=== PATIENT | female | born 1995 | race Caucasian/White ===

== ENCOUNTER 2016-10-17 13:13 | Outpatient (CLI) | payer BC ==
[2016-10-17] MEDS ORDERED: BARIUM SULFATE 176 GM BOTTLE PO ONE (13:52)
[2016-10-17] MEDS ORDERED: BARIUM SULFATE 454 GM TUBE PO ONE (13:52)
== END 2016-10-17 13:14 | disposition home or self-care (01) ==
DX: R13.10 Dysphagia, unspecified (principal)
CPT/HCPCS: 74230; 92611; A9270

== ENCOUNTER 2016-10-24 09:40 | Outpatient (CLI) | payer BC | END 2016-10-24 09:41 | disposition home or self-care (01) | DX: N39.0 Urinary tract infection, site not specified (principal) ==

== ENCOUNTER 2016-12-28 08:29 | Outpatient (CLI) | payer BC ==
[2016-12-30 13:06] LABS: TREPONEMA AB IGG NEGATIVE (())
[2016-12-31 00:03] LABS: HSV 1 IGG INDEX <0.90 INDEX (()); HSV 1/2 IGM INDEX <0.90 INDEX (()); HSV 2 IGG INDEX <0.90 INDEX (())
== END 2016-12-28 08:30 | disposition home or self-care (01) ==
LOC: LAB.WCP 08:29
PROVIDERS: ATTEND Family Medicine
DX: Z20.2 Contact with and (suspected) exposure to infections with a predominantly sexual mode of transmission (principal)
CPT/HCPCS: 36415; 86694; 86695; 86696; 86780; 86803; 87389; 87491; 87591

== ENCOUNTER 2016-12-28 08:34 | Outpatient (CLI) | payer BC | END 2016-12-28 08:35 | disposition home or self-care (01) | LOC: LAB.R 08:34 | PROVIDERS: ATTEND Family Medicine | DX: Z20.5 Contact with and (suspected) exposure to viral hepatitis (principal) | CPT/HCPCS: 87491; 87591 ==

== ENCOUNTER 2017-03-29 08:00 | Outpatient (CLI) | payer BC | END 2017-03-29 08:01 | disposition home or self-care (01) | LOC: LAB.R 08:00 | PROVIDERS: ATTEND Family Medicine | DX: N89.8 Other specified noninflammatory disorders of vagina (principal) | CPT/HCPCS: 87480; 87510; 87660 ==

== ENCOUNTER 2018-04-12 08:00 | Outpatient (CLI) | payer BC | END 2018-04-12 08:01 | disposition home or self-care (01) | LOC: LAB.WCP 08:00 | PROVIDERS: ATTEND Nurse Practitioner | DX: N89.8 Other specified noninflammatory disorders of vagina (principal) | CPT/HCPCS: 87480; 87510; 87660 ==

== ENCOUNTER 2018-10-05 09:12 | Outpatient (CLI) | payer OTHER, BC ==
[2018-10-05 09:50] LABS: ALBUMIN 4.2 g/dL (3.2-5.5); ALBUMIN/GLOBULIN RATIO 1.4 (1.0-2.2); ALKALINE PHOSPHATASE 43 IU/L (42-121); ALT ALANINE AMINOTRANSFERASE 12 IU/L (10-60); AST ASPARTATE AMINOTRANSFERASE 16 IU/L (10-42); BILIRUBIN,TOTAL 0.7 mg/dL (0.2-1.0); BUN - BLOOD UREA NITROGEN 14 mg/dL (6-20); CALCIUM 9.2 mg/dL (8.5-10.3); CARBON DIOXIDE - CO2 24 mmol/L (21-32); CHLORIDE 107 mmol/L (101-111); CHOL/HDL RATIO 2.1 (<4.4); CHOLESTEROL 152 mg/dL; CREATININE 0.7 mg/dL (0.4-1.0); GFR - MDRD 102 (>89); GLUCOSE 87 mg/dL (70-100); HDL CHOLESTEROL 74 mg/dL; LDL CHOLESTEROL,CALCULATED 64 mg/dL; LDL/HDL RATIO 0.9 (<4.4); SODIUM 138 mmol/L (135-145); TOTAL PROTEIN 7.3 g/dL (6.7-8.2); VLDL CHOLESTEROL 14 mg/dL
[2018-10-07 15:47] LABS: HEPATITIS C ANTIBODY NON-REACTIVE (NON-REACTIVE)
== END 2018-10-05 09:13 | disposition home or self-care (01) ==
LOC: LAB 09:12
PROVIDERS: ATTEND Family Medicine
DX: Z00.00 Encounter for general adult medical examination without abnormal findings (principal); Z11.3 Encounter for screening for infections with a predominantly sexual mode of transmission
CPT/HCPCS: 36415; 80053; 80061; 83721; 86803

== ENCOUNTER 2019-02-10 08:00 | Outpatient (CLI) | payer OTHER ==
[2019-02-10 18:00] LABS: MEAN CORPUSCULAR HEMOGLOBIN 29.7 pg (27.0-31.0); MEAN CORPUSCULAR HGB CONC 32.7 g/dL (32.0-36.0); MEAN CORPUSCULAR VOLUME 90.8 fL (81.0-99.0); MEAN PLATELET VOLUME 10.1 fL (7.9-10.8); RED BLOOD COUNT 4.37 10^6/uL (4.20-5.40); RED CELL DISTRIBUTION WIDTH 12.4 % (12.0-15.0); WHITE BLOOD COUNT 5.1 x10^3/uL (4.8-10.8)
== END 2019-02-10 08:01 | disposition home or self-care (01) ==
LOC: LAB 08:00
PROVIDERS: ATTEND Obstetrics & Gynecology
DX: N93.9 Abnormal uterine and vaginal bleeding, unspecified (principal)
CPT/HCPCS: 36415; 85027

== ENCOUNTER 2019-02-10 16:52 | Outpatient (CLI) | payer OTHER ==
--- NOTE | 2019-02-12 01:06 | Ultrasound Report ---
Reason: ABNORMAL VAGINAL BLEEDING Procedure Date: 02/10/2019 Accession Number: [id number] / [id number] Procedure: US - Pelvic w/Transvaginal CPT Code: FULL RESULT: EXAM: PELVIC ULTRASOUND EXAM DATE: 02/10/2019 05:13 PM. CLINICAL HISTORY: ABNORMAL VAGINAL BLEEDING. COMPARISON: None. TECHNIQUE: Realtime transabdominal pelvic scan performed to identify the uterus and adnexa and as an overview of other pelvic structures, followed by transvaginal scan to provide greater detail of the uterus and adnexa, with static image documentation. FINDINGS: Uterus: 8.9 x 4.1 x 5.1 cm, volume 98.1 cc. Anteverted position. Normal overall size and echotexture. Masses: None. Endometrium: 3 mm. No focal endometrial abnormalities. Cervix: Unremarkable. Right Ovary: 1.8 x 2.0 x 1.6 cm, volume 3.1 cc. Normal echotexture and blood flow. Left Ovary: 1.8 x 1.2 x 1.7 cm, volume 2 cc. Normal echotexture and blood flow. Free Fluid: None. Other: None. IMPRESSION: No acute sonographic abnormalities. RADIA
== END 2019-02-10 16:53 | disposition home or self-care (01) ==
LOC: DI 16:52
PROVIDERS: ATTEND Obstetrics & Gynecology
DX: N93.9 Abnormal uterine and vaginal bleeding, unspecified (principal)
CPT/HCPCS: 76830; 76856

== ENCOUNTER 2019-03-12 12:19 | Day surgery (SDC) | payer OTHER ==
--- NOTE | 2019-03-11 01:09 | HISTORY & PHYSICAL EXAMINATION ---
HPI - Admitted From Admitted from: Other - History Obtained From Records Reviewed: Old records reviewed, Other History obtained from: Patient Exam limitations: No limitations - History of Present Illness HPI Comment/Other: Ms. Dent is a 24-year-old G1, P0 here for Nexplanon removal and seeks management of DUB, with conversion to preoperative assessment for hysteroscopy D&C, Mirena IUD placement, and Nexplanon removal. She reports that she has had abnormal menstrual bleeding since menarche. She has tried multiple means of managing her bleeding. She has been on multiple formulations of oral contraceptives. She has been on Depo-Lupron for 6 months. This has been an ongoing problem since seventh or eighth grade.There was one brief period where she did not have a cycles for several months and then bled for 2 weeks straight. She became after that. The was not continued. She was had a Nexplanon placed and that improved her bleeding. Since she has had her second Nexplanon placed she continues to bleed on a near daily basis. She would like the Nexplanon removed today. She plans on continuing with Dodie COCxs. She attempted to have a Mirena IUD placed at one point but was too deterred by the description.She is not interested in childbearing. She is interested in adoption. She has considered hysterectomy. She has not had a hysteroscopy or D&C. She had a severe allergic reaction to bupivacaine. She would like her Nexplanon removed. She was told she might not react to Marcaine. However we reviewed that bupivacaine is part of Marcaine. She is interested in possible hysteroscopy with a D&C at the same time she could have a Mirena IUD placed. While she is under anesthesia we could also remove her Nexplanon. ASCUS pap last year. HPV negative. Current Allergies: AMOXICILLIN (Critical) * CEPHELEXIN (Critical) BENZOCAINE (BENZOCAINE) (Critical) * XANO STARCH (Critical) Current Meds: DODIE 3-0.02 MG ORAL TABLET (DROSPIRENONE-ETHINYL ESTRADIOL) one by mouth daily; Route: ORAL SPIRONOLACTONE 50 MG ORAL TABLET (SPIRONOLACTONE) one by mouth daily; Route: ORAL LORATADINE 10 MG ORAL TABLET (LORATADINE) Take one tablet by mouth once daily for allergies; Route: ORAL GLUCOSAMINE CHONDROITIN JOINT ORAL TABLET (MDQLGN-[id number]-[id number]-MSM) Take one tablet by mouth daily; Route: ORAL DODIE 3-0.02 MG ORAL TABLET (DROSPIRENONE-ETHINYL ESTRADIOL) Sig 1 active tablet po daily. Discard placebos.; Route: ORAL ALLERGY RELIEF 10 MG ORAL TABLET (LORATADINE) Take one tablet by mouth daily; Route: ORAL MULTIVITAMINS ORAL CAPSULE (MULTIPLE VITAMIN) Take one capsule by mouth once daily; Route: ORAL ADDERALL XR 10 MG ORAL CAPSULE EXTENDED RELEASE 24 HOUR (AMPHETAMINE- DEXTROAMPHETAMINE) Take two capsules by mouth daily; Route: ORAL NEXPLANON 68 MG SUBCUTANEOUS IMPLANT (ETONOGESTREL) Insert 10/24/16. Left arm. Remove 10/25/19. [id number].; Route: SUBCUTANEOUS [Family History-CCC] Social History Summary: Patient has never smoked. Patient has never used smokeless tobacco. Passive Smoke: N Alcohol Use: N Drug Use: N HIV/High Risk: N Regular Exercise: Y Hx Domestic Abuse: N Christian Affecting Care: N Sexually Active: Y She lives in [place] with a roommate. 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 She does not smoke. She uses alcohol every 3 months. She does not use recreational drug use or marijuana. She reports being safe at home. Social History Reviewed: 03/06/2019 Previous Social History: Patient has never smoked. Patient has never used smokeless tobacco. Passive Smoke: N Alcohol Use: N Drug Use: N HIV/High Risk: N Regular Exercise: Y Hx Domestic Abuse: N Christian Affecting Care: N Sexually Active: Y Vital Signs: Patient Profile: 24 Years Old Female LMP: 01/15/2019 Height: 64 inches Weight: 130.2 pounds BMI: 22.43 Pt. in pain? no Vitals Entered By: Sara Rodriugez LPN (March 06, 2019 9:06 AM) Meds Reviewed: Done Allergies Reviewed: Done Menstrual History: LMP (date): 01/15/2019 Past Medical History: Reviewed and updated today: Possible endometriosis, treated with nexplanon inserted 10/2013 Claustrophobia Anxiety/ADHD Abnormal Pap Smear Endometriosis Headache/Migraine IBS Ovarian Cysts PCOS Stable VSD- does not require preop abx Past Surgical History: Howell teeth, pt had woken up in the middle of procedure - 2013 GEODUCK DIVER Review of Systems ROS Comments: As per HPI, otherwise remaining systems are negative. Physical Constitutional: alert, no acute distress. Distressed with pelvic exam Skin: normal turgor, normal color. Head: atraumatic, normocephalic. Neck: supple, no adenopathy. Cardiovascular: RRR, no murmurs. Respiratory: no respiratory distress, clear to auscultation. Abdomen: nondistended, nontender, no guarding. Urethra: normal, no masses, non-tender. Vagina: normal, rugated, physiologic discharge. Cervix: normal, no motion tenderness, no lesions. Uterus: mobile, non-tender. Adnexa: normal, no masses, mobile, nontender. Impression & Recommendations: Problem # 1: Hx of abnormal cervical Papanicolaou smear (ICD-V13.29) (ICD10- Z87.42) [facility] Orders: THIN PREP PAP w/GC & CHLAMYDIA 21-30 Y/O (CPT-62416) HPV DIRECT PROBE, HIGH RISK (CPT-87983) 80272 OV Est Detailed (CPT-55954) Problem # 2: DUB (ICD-626.8) (YZD63-I14.8) We discussed different options for managing her ongoing dysfunctional uterine bleeding. First option includes continuing with Combined oral contraceptives. The second option includes placing a Mirena IUD. Third option includes endometrial ablation. Final and definitive surgical management would be of hysterectomy. We discussed that, while she does not desire childbearing in the future, hysterectomy is the definitive surgical procedure but carries significant risks. I am not opposed to hysterectomy but we have not exhausted other effective and less invasive optiosn. My recommendation at this time would be to at least pursue a hysteroscopic evaluation. This would include a D&C possible polypectomy, or myomectomy,. At that time we would place a Mirena IUD under anesthesia. Furthermore since she had severe allergic reaction to local anesthetic this work. This would allow us to remove her Nexplanon under general anesthesia. After extensive discussion she agreed that hysteroscopy D&C with possible polypectomy& myomectomy, Mirena IUD placement, and removal of the Nexplanon would be her next best option. We discussed risks benefits and alternatives. Risks include bleeding infection and damage nearby tissue and organs, including uterine perforation with possible laparoscopic procedure to remove a migrating IUD. She accepts the risks, and has signed the consent for hysteroscopy D&C with possible polypectomy& myomectomy, Mirena IUD placement, and removal of the N explanon This visit lasted at least 30 minutes with greater than 50% of the time devoted to face to face case management discussion between the provider and the patient.
[2019-03-12] MEDS ORDERED: KETAMINE 500 MG/10 ML VIAL IVP ONE (12:20)
[2019-03-12] MEDS ORDERED: PROPOFOL 200 MG/20 ML VIAL IVP ONE (12:20)
[2019-03-12] MEDS ORDERED: MIDAZOLAM 2 MG/2 ML VIAL IVP ONE (12:20)
[2019-03-12] MEDS ORDERED: DEXAMETHASONE 4 MG/ML VIAL IVP ONE (12:20)
[2019-03-12] MEDS ORDERED: fentaNYL 100 MCG/2 ML VIAL IVP ONE (12:20)
[2019-03-12] MEDS ORDERED: LACTATED RINGERS 1,000 ML IV ONE (12:27)
[2019-03-12] MEDS ORDERED: LIDOCAINE 1%-EPI 1:100000 20 ML MDV ONE (13:13)
[2019-03-12 13:56] LABS: HCG UR QUAL NEGATIVE
--- NOTE | 2019-03-12 16:39 | ANESTHESIA ---
Pre-Anesthesia VS, & Labs - Diagnosis disfunctional uterine bleeding, failed nexplanon - Procedure hysteroscopy D&C Vital Signs: Temp Pulse Resp BP Pulse Ox 36.7 C 74 14 126/73 98 03/12/19 12:27 03/12/19 12:27 03/12/19 12:27 03/12/19 12:27 03/12/19 12:27 Height 5 ft 4 in Weight (kg) 58.2 kg Body Mass Index 21.8 - NPO >8 hours - Is Patient ?: No Home Medications and Allergies Home Medications: Ambulatory Orders Dextroamphetamine/Amphetamine [Adderall 20 mg Tablet] 20 mg PO DAILY 03/11/19 Ethinyl Estradiol/Drospirenone [Dawn 28 Tablet] 1 tab PO DAILY 03/11/19 Etonogestrel [Nexplanon] 68 mg 03/11/19 Loratadine 10 mg PO DAILY 03/11/19 Dextroamphetamine/Amphetamine [Adderall 20 mg Tablet] 20 mg PO DAILY 03/11/19 Ethinyl Estradiol/Drospirenone [Dawn 28 Tablet] 1 tab PO DAILY 03/11/19 Etonogestrel [Nexplanon] 68 mg 03/11/19 Loratadine 10 mg PO DAILY 03/11/19 Allergies/Adverse Reactions: Allergies Allergy/AdvReac Type Severity Reaction Status Date / Time amoxicillin Allergy Rash Verified 03/11/19 13:40 benzocaine Allergy Anaphylaxis Verified 03/11/19 13:43 cephalexin Allergy Rash Verified 03/11/19 13:40 Anes History & Medical History - Anesthetic History Anesthesia Complications: reports: Other-see comment (one of the antiemetic meds gave me a rash"") - Medical History Cardiovascular: reports: Valve disorder (H/O VSD, no treatment) Pulmonary: reports: None Gastrointestinal: reports: Other Urinary: reports: None Musculoskeletal: reports: Chronic back pain Endocrine/Autoimmune: reports: None Skin: reports: None Smoking Status: Never smoker Psychosocial: reports: Other (ADHD) - Surgical History Eyes Ears Nose Throat (EENT): Other Exam General: Alert Dental: WNL Mouth Opening: Greater than 4 Fingerbreadths Mallampati classification: II Thyromental Distance: greater than 6 cm Respiratory: Lungs clear Cardiovascular: Regular rate Plan Anesthesia Type: General Consent for Procedure(s) Verified and Reviewed: Yes Code Status: Attempt Resuscitation ASA classification: 2-Mild systemic disease Is this case an emergency?: No
[2019-03-12] MEDS ORDERED: LEVONORGESTREL 20 MCG/24H IUD IY ONE ×2 (17:50→18:36)
--- NOTE | 2019-03-12 18:50 | OPERATIVE REPORT ---
Operative Report - General Procedure Date: 03/12/19 Planned Procedure: Exam under anesthesia, hysteroscopy D&C, Mirena IUD placement, and Nexplanon removal. Mirena lot number: [id number] Expiration: June 2021 Pre-Op Diagnosis: DUB, allergy to local anesthetic, poor tolerance of clinic exam Procedure Performed: Nexplanon removal. Hysteroscopy D&C. Mirena IUD placement Post Op Diagnosis: Same - Procedure Note Primary Surgeon: Maday Pineda MD Anesthesia Provider: Ema Massey CRNA Anesthesia Technique: General LMA Pathology: Uterine curettings IV Fluids (mL): 300 Estimated Blood Loss (mL): 5 Urine Output (mL): 0 (In and out catheterization at start of procedure) Indications: Naomi is a 24-year-old G0 with a long history of dysfunctional uterine bleeding. She has failed multiple modalities of medical management including Depo-Lupron, COCs, Nexplanon. She has not yet had endometrial sampling. She also has a severe allergy to bupivacaine and cannot have a local anesthetic. She has a Nexplanon in place and wants it removed. It could not be removed in clinic due to contraindications to local anesthetic. She would like a Mirena IUD placed but has been unable to tolerate placement in clinic. She is here for exam under anesthesia, placement of the IUD under anesthesia, hysteroscopy D&C, and Nexplanon removal Findings: Normal uterine cavity, tubal ostia noted bilaterally. Uterus sounds to 9 cm. Complications: None - Other Other Information/Narrative: Risks benefits and alternatives of the procedure have been reviewed and patient had provided written consent prior to presentation. Consent was again confirmed today. She was taken to the operating room where she underwent general anesthesia with LMA. She was prepped and draped in the usual sterile fashion with legs resting in yellowfin stirrups. SCDs were in place. In and out catheterization was started at that was performed at the start of the procedure. Preoperative timeout was performed. Preoperative antibiotics were not indicated. Nexplanon was palpated in the left arm in the about 8 cm from the medial epicondyle in the in the biceps sulcus. The area was cleansed with Betadine x3. An incision was made at the left at the distal end of the Nexplanon using an #11 blade scalpel. The Nexplanon implant was pushed through the incision, grasped with a hemostat, and was removed without complication. Steri-Strips were used to secure the incision. A pressure bandage with Coban was was applied. Attention was then turned to the hysteroscopic portion of the procedure. Bimanual exam was performed to determine the direction of the uterus. A sterile split speculum was placed in the vagina and the cervix was visualized. A single-tooth tenaculum was placed on the anterior cervical lip the cervix. The uterus sounded to 9 cm. The cervical office with serial dilated with Hegar dilators to accommodate the MyoSure diagnostic hysteroscope. The hysteroscope was inserted into the cervix and the uterine cavity was visualized. Findings were as noted above. The hysteroscope was removed. A D&C with sharp curettage was performed. Mirena IUD was then inserted according to package directions. The strings were trimmed to 2 to 3 cm. The tenaculum was removed and good hemostasis was noted. All instruments were removed from the vagina. The procedure was well-tolerated and without complication. Fluid deficit was 60 cc normal saline
[2019-03-12] MEDS ORDERED: ONDANSETRON 4 MG/2 ML VIAL IVP PRN (19:01)
[2019-03-12] MEDS ORDERED: oxyCODONE 5 MG TABLET PO PRN (19:01)
[2019-03-12] MEDS ORDERED: oxyCODONE 10 MG/0.5 ML SYRINGE PO PRN (19:01)
[2019-03-12] MEDS ORDERED: HYDROmorphone 0.5 MG/0.5 ML SYRINGE IVP PRN (19:01)
[2019-03-12 20:49] VITALS: BP 121/71
== END 2019-03-12 20:30 | disposition home or self-care (01) ==
LOC: SDS 12:19 → MS3 19:35 → SDS 20:30
PROVIDERS: ATTEND Obstetrics & Gynecology
PROC: 0JPV0HZ Removal of Contraceptive Device from Upper Extremity Subcutaneous Tissue and Fascia, Open Approach (ICD-10-PCS; 2019-03-12)
PROC: 0UDB7ZX Extraction of Endometrium, Via Natural or Artificial Opening, Diagnostic (ICD-10-PCS; principal; 2019-03-12 13:00)
PROC: 0UJD8ZZ Inspection of Uterus and Cervix, Via Natural or Artificial Opening Endoscopic (ICD-10-PCS; 2019-03-12 13:00)
PROC: 0UH97HZ Insertion of Contraceptive Device into Uterus, Via Natural or Artificial Opening (ICD-10-PCS; 2019-03-12 13:00)
DX: N93.8 Other specified abnormal uterine and vaginal bleeding (principal); N72 Inflammatory disease of cervix uteri; Z30.430 Encounter for insertion of intrauterine contraceptive device; Z30.46 Encounter for surveillance of implantable subdermal contraceptive; Q21.0 Ventricular septal defect; F90.9 Attention-deficit hyperactivity disorder, unspecified type; F40.240 Claustrophobia; F41.9 Anxiety disorder, unspecified; K58.9 Irritable bowel syndrome, unspecified; Z88.4 Allergy status to anesthetic agent; Z87.42 Personal history of other diseases of the female genital tract
CPT/HCPCS: 11982; 58300; 58558; 81025; J7120; J7298

== ENCOUNTER 2019-12-16 08:00 | Outpatient (CLI) | payer OTHER ==
[2019-12-16 12:24] LABS: BILIRUBIN,URINE NEGATIVE (NEGATIVE); GLUCOSE, URINE (UA) NEGATIVE (NEGATIVE); KETONES,URINE (UA) NEGATIVE (NEGATIVE); LEUKOCYTE ESTERASE, URINE NEGATIVE (NEGATIVE); NITRITE,URINE NEGATIVE (NEGATIVE); OCCULT BLOOD,URINE MODERATE (NEGATIVE); PROTEIN,URINE NEGATIVE (NEGATIVE); UROBILINOGEN,URINE 0.2 (NORMAL) E.U./dL (NORMAL)
[2019-12-16 12:33] LABS: CLARITY,URINE HAZY (CLEAR)
[2019-12-16 12:41] LABS: BACTERIA,URINE Moderate /HPF (None Seen); SQUAMOUS EPITHELIAL CELL,UR MOD Squamous (<= Few)
== END 2019-12-16 23:59 | disposition home or self-care (01) ==
LOC: LAB.WCP 08:00
PROVIDERS: ATTEND Nurse Practitioner Family
DX: R30.0 Dysuria (principal)
CPT/HCPCS: 81001; 81003; 87086

== ENCOUNTER 2020-01-12 08:00 | Outpatient (CLI) | payer OTHER | END 2020-01-12 23:59 | disposition home or self-care (01) | LOC: LAB.WCP 08:00 | PROVIDERS: ATTEND Family Medicine | DX: Z13.89 Encounter for screening for other disorder (principal) | CPT/HCPCS: 36415; 86787 ==

== ENCOUNTER 2020-04-26 12:56 | Outpatient (CLI) | payer OTHER ==
[2020-04-26 18:46] LABS: ALBUMIN 4.9 g/dL (3.2-5.5); ALKALINE PHOSPHATASE 78 IU/L (42-121); ALT ALANINE AMINOTRANSFERASE 12 IU/L (10-60); AST ASPARTATE AMINOTRANSFERASE 15 IU/L (10-42); BILIRUBIN,DIRECT 0.1 mg/dL (0.1-0.5); BILIRUBIN,TOTAL 0.7 mg/dL (0.2-1.0); CHOL/HDL RATIO 2.3 (<4.4); CHOLESTEROL 146 mg/dL; HDL CHOLESTEROL 63 mg/dL; LDL CHOLESTEROL,CALCULATED 63 mg/dL; TOTAL PROTEIN 7.8 g/dL (6.7-8.2); VLDL CHOLESTEROL 20 mg/dL
== END 2020-04-26 23:59 | disposition home or self-care (01) ==
LOC: LAB.WCP 12:56
PROVIDERS: ATTEND Physician Assistant
DX: L70.0 Acne vulgaris (principal); Z79.899 Other long term (current) drug therapy; L81.0 Postinflammatory hyperpigmentation
CPT/HCPCS: 36415; 80061; 80076; 83721; 84702

== ENCOUNTER 2020-05-31 07:24 | Outpatient (CLI) | payer OTHER ==
[2020-05-31 13:16] LABS: ALBUMIN 4.5 g/dL (3.2-5.5); ALKALINE PHOSPHATASE 64 IU/L (42-121); ALT ALANINE AMINOTRANSFERASE 14 IU/L (10-60); AST ASPARTATE AMINOTRANSFERASE 19 IU/L (10-42); BILIRUBIN,DIRECT 0.2 mg/dL (0.1-0.5); BILIRUBIN,TOTAL 1.2 mg/dL (0.2-1.0); CHOL/HDL RATIO 2.5 (<4.4); CHOLESTEROL 156 mg/dL; HDL CHOLESTEROL 62 mg/dL; LDL CHOLESTEROL,CALCULATED 84 mg/dL; LDL/HDL RATIO 1.4 (<4.4); TOTAL PROTEIN 7.1 g/dL (6.7-8.2); VLDL CHOLESTEROL 10 mg/dL
== END 2020-05-31 23:59 | disposition home or self-care (01) ==
LOC: LAB.WCP 07:24
PROVIDERS: ATTEND Physician Assistant
DX: L70.0 Acne vulgaris (principal)
CPT/HCPCS: 36415; 80061; 80076; 83721; 84702

== ENCOUNTER 2020-06-28 08:00 | Outpatient (CLI) | payer OTHER ==
[2020-06-28 12:49] LABS: ALBUMIN 4.5 g/dL (3.2-5.5); ALKALINE PHOSPHATASE 67 IU/L (42-121); ALT ALANINE AMINOTRANSFERASE 21 IU/L (10-60); AST ASPARTATE AMINOTRANSFERASE 34 IU/L (10-42); BILIRUBIN,DIRECT 0.1 mg/dL (0.1-0.5); CHOL/HDL RATIO 2.9 (<4.4); CHOLESTEROL 150 mg/dL; HDL CHOLESTEROL 52 mg/dL; LDL CHOLESTEROL,CALCULATED 83 mg/dL; LDL CHOLESTEROL,DIRECT 84 mg/dL; LDL/HDL RATIO 1.6 (<4.4); TOTAL PROTEIN 7.2 g/dL (6.7-8.2); VLDL CHOLESTEROL 15 mg/dL
== END 2020-06-28 23:59 | disposition home or self-care (01) ==
LOC: LAB.N 08:00
PROVIDERS: ATTEND Physician Assistant
DX: L70.0 Acne vulgaris (principal); L81.0 Postinflammatory hyperpigmentation; Z79.899 Other long term (current) drug therapy
CPT/HCPCS: 36415; 80061; 80076; 83721; 84702

== ENCOUNTER 2020-08-02 08:00 | Outpatient (CLI) | payer OTHER ==
[2020-08-02 14:47] LABS: ALBUMIN 4.5 g/dL (3.2-5.5); ALKALINE PHOSPHATASE 66 IU/L (42-121); ALT ALANINE AMINOTRANSFERASE 16 IU/L (10-60); AST ASPARTATE AMINOTRANSFERASE 20 IU/L (10-42); BILIRUBIN,DIRECT 0.1 mg/dL (0.1-0.5); BILIRUBIN,TOTAL 0.6 mg/dL (0.2-1.0); CHOL/HDL RATIO 2.9 (<4.4); CHOLESTEROL 143 mg/dL; HDL CHOLESTEROL 49 mg/dL; LDL CHOLESTEROL,CALCULATED 81 mg/dL; LDL/HDL RATIO 1.7 (<4.4); VLDL CHOLESTEROL 13 mg/dL
== END 2020-08-02 23:59 | disposition home or self-care (01) ==
LOC: LAB.WCP 08:00
PROVIDERS: ATTEND Physician Assistant
DX: L70.0 Acne vulgaris (principal)
CPT/HCPCS: 36415; 80061; 80076; 83721; 84702

== ENCOUNTER 2020-08-11 18:47 | Outpatient (CLI) | payer OTHER ==
--- NOTE | 2020-08-12 10:32 | Ultrasound Report ---
PROCEDURE: Pelvic w/Transvaginal INDICATIONS: IUD surveillance TECHNIQUE: Real-time scanning was performed of the pelvic organs, with image documentation. Additional endovagi nal scanning was necessary due to incomplete visualization of the adnexal and endometrial structures by transabdominal scanning. COMPARISON: Pelvic ultrasound 02/12/2019. FINDINGS: No pathologic free abdominal or pelvic fluid. Uterus: Uterus is anteverted and normal in size at 7.3 x 4.5 x 3.7 cm. Volume of 64 cc. No fibroids seen. The endometrium measures 5 mm in combined thickness. IUD centered in the endometrial cavity. Tr bryson fluid in the cervical canal. Ovaries: Within normal limits. Right ovary measures 3.8 x 2.6 x 2.4 cm, volume of 12 cc. Left ovary measures 4.3 x 3.5 x 3.1 cm, volume of 24 cc. -Left ovarian anechoic and crenulated appearing cyst measuring 2.6 x 2.5 x 2.3 cm. There is periphera l blood flow. IMPRESSION: 1. IUD is centered in the endometrial cavity. Trace fluid in the cervical canal. 2. Small left ovarian anechoic cyst measuring 2.6 cm. This could represent a simple cyst or corpus pedro teum. Reviewed by: Rob Fuller MD on 08/12/2020 10:31 AM PST Approved by: Rob Fuller MD on 08/12/2020 10:31 AM PST Station ID: [id number]
== END 2020-08-11 18:48 | disposition home or self-care (01) ==
LOC: DI 18:47
PROVIDERS: ATTEND Physician Assistant
DX: Z30.431 Encounter for routine checking of intrauterine contraceptive device (principal); N83.202 Unspecified ovarian cyst, left side

== ENCOUNTER 2020-11-30 08:00 | Outpatient (CLI) | payer OTHER ==
[2020-11-30 12:33] LABS: ALBUMIN 4.7 g/dL (3.2-5.5); ALKALINE PHOSPHATASE 70 IU/L (42-121); ALT ALANINE AMINOTRANSFERASE 13 IU/L (10-60); AST ASPARTATE AMINOTRANSFERASE 18 IU/L (10-42); BILIRUBIN,DIRECT 0.1 mg/dL (0.1-0.5); CHOLESTEROL 138 mg/dL; HDL CHOLESTEROL 46 mg/dL; LDL CHOLESTEROL,CALCULATED 67 mg/dL; LDL/HDL RATIO 1.5 (<4.4); TOTAL PROTEIN 7.3 g/dL (6.7-8.2); TRIGLYCERIDES 125 mg/dL; VLDL CHOLESTEROL 25 mg/dL
== END 2020-11-30 23:59 | disposition home or self-care (01) ==
LOC: LAB.WCP 08:00
PROVIDERS: ATTEND Physician Assistant
DX: L70.0 Acne vulgaris (principal)
CPT/HCPCS: 36415; 80061; 80076; 83721; 84702

== ENCOUNTER 2021-02-28 08:31 | Outpatient (CLI) | payer OTHER ==
[2021-02-28 12:18] LABS: BASOPHILS % (AUTO) 0.4 %; EOSINOPHILS # (AUTO) 0.1 10^3/uL (0.0-0.7); EOSINOPHILS % (AUTO) 1.1 %; HCT - HEMATOCRIT 42.3 % (37.0-47.0); LYMPHOCYTES # (AUTO) 1.8 10^3/uL (1.5-3.5); LYMPHOCYTES % (AUTO) 36.8 %; MEAN CORPUSCULAR HEMOGLOBIN 30.2 pg (27.0-31.0); MEAN CORPUSCULAR HGB CONC 33.1 g/dL (32.0-36.0); MEAN CORPUSCULAR VOLUME 91.4 fL (81.0-99.0); MEAN PLATELET VOLUME 11.4 fL (7.9-10.8); MONOCYTES # (AUTO) 0.3 10^3/uL (0.0-1.0); MONOCYTES % (AUTO) 6.7 %; NEUTROPHILS # (AUTO) 2.6 10^3/uL (1.5-6.6); NEUTROPHILS % (AUTO) 54.8 %; PLT - PLATELET COUNT 186 10^3/uL (130-450); RED BLOOD COUNT 4.63 10^6/uL (4.20-5.40); RED CELL DISTRIBUTION WIDTH 12.6 % (12.0-15.0); WHITE BLOOD COUNT 4.8 x10^3/uL (4.8-10.8)
[2021-02-28 12:49] LABS: BILIRUBIN,TOTAL 0.9 mg/dL (0.2-1.0); CALCIUM 9.6 mg/dL (8.5-10.3); CREATININE 0.6 mg/dL (0.4-1.0); POTASSIUM 3.8 mmol/L (3.5-5.0); TOTAL PROTEIN 7.5 g/dL (6.7-8.2)
[2021-02-28 12:56] LABS: THYROID STIMULATING HORMONE 1.45 uIU/mL (0.34-5.60)
== END 2021-02-28 23:59 | disposition home or self-care (01) ==
LOC: LAB.WCP 08:31
PROVIDERS: ATTEND Family Medicine
DX: R20.2 Paresthesia of skin (principal)
CPT/HCPCS: 36415; 80053; 82607; 84443; 85025; 85651

== ENCOUNTER 2021-04-22 08:00 | Outpatient (CLI) | payer OTHER ==
[2021-04-22 19:28] LABS: BACTERIAL VAGINOSIS DNA POSITIVE (NEGATIVE); CANDIDA GLABRATA DNA NEGATIVE (NEGATIVE); CANDIDA GROUP DNA NEGATIVE (NEGATIVE); CANDIDA KRUSEI DNA NEGATIVE (NEGATIVE); TRICHOMONAS VAGINALIS DNA NEGATIVE (NEGATIVE)
[2021-04-22 21:29] LABS: CHLAMYDIA TRACHOMATIS DNA NEGATIVE (NEGATIVE); NEISSERIA GONORRHOEAE DNA NEGATIVE (NEGATIVE); TRICHOMONAS VAGINALIS DNA NEGATIVE (NEGATIVE)
== END 2021-04-22 08:01 | disposition home or self-care (01) ==
LOC: LAB.N 08:00
PROVIDERS: ATTEND Family Medicine
DX: N89.8 Other specified noninflammatory disorders of vagina (principal)
CPT/HCPCS: 87491; 87591; 87661; 87801

== ENCOUNTER 2021-09-07 08:29 | Outpatient (CLI) | payer OTHER ==
[2021-09-07 09:16] VITALS: BP 139/98
--- NOTE | 2021-09-07 09:16 | SLEEP CARE CONSULTATION ---
Information from patient questionnaire entered by Corinna Virk MA. I have reviewed and concur with the information entered by Corinna Virk MA. This document represents the service I personally performed and the decisions made by , Vangie Aldana ARNP. History of Present Illness Service Date and Time: 09/07/2021 0829 Reason for Visit: New patient Chief Complaint: reports: Unrefreshed sleep, Snoring (sometimes), Excessive daytime sleepiness, Fatigue, Other (GASPING FOR AIR) Date of Onset: 10+ years Usual bedtime: 1000 PM Time it takes to fall asleep: DEPENDS Snores at night: Yes (SOMETIMES) Sleeps alone due to snoring: No Number of times waking at night: 0 Reasons for waking at night: reports: Gasping for air, Pain, Other Toss, Turn, or Twitch while sleeping: Yes Recalls having dreams: No Usually gets out of bed at: 0600 Feels refreshed in the morning: No Morning headache: No Sleepy or fatigued during the day: Yes Ever fallen asleep while driving: No Takes day naps: No Dreams during day naps: No Additional HPI information: I had the pleasure of seeing ELMER FERNÁNDEZ today regarding the possibility of her having a sleep disorder. Her current complaints are excessive daytime sleepiness, fatigue, unrefreshed sleep and sudden wake up gasping for air. The patient tells me that she normally goes to bed around 10 pm, and it takes her approximately 10 minutes to fall asleep. She has been told that she snores s ometimes at night. She has not been observed to stop breathing in her sleep but she has woken up gasping for air. Her bed partner can still sleep in the same bed. She can recall waking up multiple times during the night. Most of the time she wakes up because of movement off bed, noise, pain and unknown. She has occasionally awakened having to gasp for air. There is a lot of tossing and turning in her sleep. Generally there is no recollection of dreams. She usually wakes up at 0600 and does not feel refreshed. She usually does not have a morning headache. She will get headaches later in day and has been diagnosed with migraines. During the day she complains of feeling sleepy and fatigued. She has never fallen asleep while driving nor has any accident due to sleepiness. She usually does not take naps during the day. She reports having impaired concentration during the day. There is somniloquy (sleep talking) (sometimes yell) and somnambulism (sleep walking), jazmyne when a child but still will act out dreams. She has never experienced sleep paralysis, cataplexy, or symptoms of restless leg syndrome. She states she will have muscle spasm in right leg usually as she is going to sleep. 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 Patient is and lives in [place]. Have you smoked in the past 12 months: No Alcohol use: Yes Alcohol amount and frequency: 1 - 2 YEARLY Caffeine use: Yes Caffeine amount and frequency: 1-2 DAILY Family History Family history of sleep disordered breathing: Yes Family Hx Sleep Apnea: Mother: Snoring, Father: Snoring, Grandparent: Snoring Allergies and Home Medications Known drug allergies: Yes (SEE QUESTIONNAIRE) Drug allergies reviewed: Yes Home medication list reviewed: Yes Allergy and home medication list: Allergies amoxicillin Allergy (Verified 03/11/19 13:40) Rash benzocaine Allergy (Verified 03/11/19 13:43) Anaphylaxis cephalexin Allergy (Verified 03/11/19 13:40) Rash possible allergy to an antinausea medications post op Xano starch Medications: Adderall XR 25 mg every morning Multivitamin OTC generic Disha Mirena, to be taken out today [place] Review of Systems Gastrointestinal: reports: nausea, diarrhea, abdominal pain, other (IBS) Neurological: reports: headaches Psychiatric: reports: Attention Deficit Hyperactivity, anxiety, depression Ear/Nose/Throat: reports: nasal congestion, sinus problems, nose bleeds, wisdom teeth removed. denies: tonsillectomy Endocrine: reports: sluggishness, too hot or cold Musculoskeletal: reports: joint pain, neck pain, back pain, joint swelling, muscle pain or cramping Immunologic: reports: sneezing, rash, itching, allergies to food or environment Physical Exam Vital signs obtained and entered by: Kristen VIRK CMA AAMANUEL Blood Pressure: 139/98 (LEFT, PULSE 98, RESP 18) Heart Rate: 103 O2 Saturation: 100 (CLOTH MASK) Height: 5 ft 4 in Weight: 130 lb (CLOTHES AND SHOES) Body Mass Index: 22.3 BMI Classification: Healthy weight Neck circumference: 12.6 (inches) Mouth and throat: normal Soft palate: normal Hard palate: normal Uvula: normal Uvula visualization: 100% Mallampati Class I Tongue: normal in size Tonsils: small Neck: normal w/o lymphadenopathy or thyromegaly Heart: regular rate and rhythm Lungs: clear bilaterally Impression and Plan 1. Suspected Obstructive Sleep Apnea-Hypopnea Syndrome, as suggested by a history of irregular snoring, gasping or choking in sleep, frequent awakening during the night, unrefreshed sleep, cognitive impairment, and excessive daytime sleepiness. Narrow oropharynx and obesity are common predisposing factors for obstructive sleep apnea-hypopnea syndrome. I recommend proceeding to polysomnography to confirm the diagnosis and to assess severity. If the patient has significant sleep disordered breathing, a manual CPAP titration study will also be performed to find the optimal treatment pressure. I informed the patient of what the sleep studies involve and after some discussion, obtained agreement to proceed. The pathophysiology of obstructive sleep apnea-hypopnea syndrome was discussed with the patient and health risks of cardiovascular and cerebrovascular disease if not treated. Risks of drowsy driving discussed in detail and patient advised to avoid long distance driving and to boat puller at the first sign of drowsiness. Patient agreed to plan. * Schedule polysomnography * Avoid long distance driving or driving when feeling sleepy. * Avoid alcohol, sedative and muscle relaxant around bedtime. * Maintain a healthy weight. * Review instructions provided by trained office staff on how to prepare for the sleep study. * Return for follow-up after sleep study completed. Counseling Topics: Weight control Visit Type: In Office Time Spent with Patient (minutes): 32 Provider Statement: I spent 100% of the Face to Face Visit with the patient with greater than 50% spent counseling the patient and coordination of care.
== END 2021-09-07 08:30 | disposition home or self-care (01) ==
LOC: SC 08:29
PROVIDERS: ATTEND Nurse Practitioner Family
DX: G47.10 Hypersomnia, unspecified (principal); G47.8 Other sleep disorders; R06.83 Snoring; F32.A Depression, unspecified
CPT/HCPCS: 99203; 99212

== ENCOUNTER 2021-10-11 08:27 | Outpatient (CLI) | payer OTHER | END 2021-10-11 08:28 | disposition home or self-care (01) | LOC: SC 08:27 | PROVIDERS: ATTEND Nurse Practitioner Family | DX: R00.0 Tachycardia, unspecified (principal) | CPT/HCPCS: 95806 ==

== ENCOUNTER 2021-10-28 08:27 | Outpatient (CLI) | payer OTHER ==
[2021-10-28 08:57] VITALS: BP 133/93
--- NOTE | 2021-10-28 08:57 | SLEEP CARE CONSULTATION ---
Information from patient questionnaire entered by Corinna Virk MA. I have reviewed and concur with the information entered by Corinna Virk MA. This document represents the service I personally performed and the decisions made by Katya jackson Caren J, ARNP. History of Present Illness Service Date and Time: 10/28/2021826 Initial [place] Sleepiness Scale score: 7 (2021) Current [place] Sleepiness Scale score: 2 (11/04) Additional HPI information: ELMER FERNÁNDEZ returns for follow up and results of the recently performed home sleep study. The patient was informed of the following findings: No significant sleep disordered breathing with an average AHI of 1.3 and [place] oxygen saturation of 93%. She was recorded to have a maximum elevated heart rate of 123 bpm. The time of study was less than optimal but patient only had 4 respiratory events total. I advised her that we could repeat study but was not likely to be positive for sleep disordered breathing. I explained the pathophysiology behind obstructive sleep apnea. Patient does not have sleep apnea and was advised how weight gain could increase the risk of developing sleep apnea in the future. Patient counseled not drink alcohol less than 4 hours before bedtime as it can increase snoring and apnea. Patient was cautioned about risks of drowsy driving until sleepiness symptoms resolve. Patient denies drowsy driving. Sleep Study - Results Type of Sleep Study: Home sleep study (F/U HOME STUDY, 10/11/2021 [facility],) Polysomnography/Home Sleep Study results: Physician Impression: The quality of the study is good. The length of the study is [id number] (< 240 minutes). Please also see the tabulated and graphic data. 1. No significant sleep disordered breathing, with an AHI of 1.3/hr and [place] SaO2 of 93%. During the study, the patient had 2 apneas (2 obstructive, 0 central, 0 mixed) and 2 hypopneas. The longest episode lasted 74.5 seconds. The rare respiratory events occurred only during supine sleep (supine AHI was 1.9 and non-supine, 0.00). 3. Tachycardia, with maximum recorded heart rate of 123 beats per minute. Allergies and Home Medications Home medication list reviewed: Yes (no changes) Allergy and home medication list: Allergies amoxicillin Allergy (Verified 03/11/19 13:40) Rash benzocaine Allergy (Verified 03/11/19 13:43) Anaphylaxis cephalexin Allergy (Verified 03/11/19 13:40) Rash Review of Systems Review of systems same as previous: Yes (no changes) Physical Exam Vital signs obtained and entered by: DONITA PICKETT Blood Pressure: 133/93 (LEFT, PULSE 80, RESP 16, ) Heart Rate: 76 O2 Saturation: 100 (CLOTH MASK) Height: 5 ft 4 in Weight: 126 lb (WITH CLOTHES) Body Mass Index: 21.6 BMI Classification: Healthy weight Impression and Plan 1. Tachycardia, unspecified. Patient had a maximum recorded heart rate of 123 bpm. I recommend she follow-up with her primary care doctor for possible cardiac monitoring for evaluation of this tachycardia. She voiced understanding and agreement. * Follow up with PCP for elevated heart rate during study * Avoid alcohol consumption near bedtime * The patient is cautioned about driving until sleepiness is completely resolved. * Return as needed for follow up. Counseling Topics: Weight control Visit Type: In Office Time Spent with Patient (minutes): 14 Provider Statement: I spent 100% of the Face to Face Visit with the patient with greater than 50% spent counseling the patient and coordination of care.
== END 2021-10-28 08:28 | disposition home or self-care (01) ==
LOC: SC 08:27
PROVIDERS: ATTEND Nurse Practitioner Family
DX: R00.0 Tachycardia, unspecified (principal)
CPT/HCPCS: 99212

== ENCOUNTER 2021-10-31 12:44 | Outpatient (CLI) | payer OTHER ==
[2021-10-31 18:11] LABS: BACTERIAL VAGINOSIS DNA POSITIVE (NEGATIVE); CANDIDA GLABRATA DNA NEGATIVE (NEGATIVE); CANDIDA GROUP DNA NEGATIVE (NEGATIVE); CANDIDA KRUSEI DNA NEGATIVE (NEGATIVE); TRICHOMONAS VAGINALIS DNA NEGATIVE (NEGATIVE)
[2021-10-31 23:22] LABS: CHLAMYDIA TRACHOMATIS DNA NEGATIVE (NEGATIVE); NEISSERIA GONORRHOEAE DNA NEGATIVE (NEGATIVE)
[2021-11-01 12:51] LABS: HEPATITIS B SURFACE ANTIGEN NON-REACTIVE (NON-REACTIVE); HEPATITIS C ANTIBODY NON-REACTIVE (NON-REACTIVE)
[2021-11-01 13:06] LABS: HIV AG/AB 4TH GEN NON-REACTIVE (NON-REACTIVE)
[2021-11-02 12:36] LABS: HSV 1 IGG TYPE SPECIFIC AB <0.90 index; HSV 2 IGG TYPE SPECIFIC AB <0.90 index
== END 2021-10-31 12:45 | disposition home or self-care (01) ==
LOC: LAB 12:44
PROVIDERS: ATTEND Obstetrics & Gynecology
DX: Z11.3 Encounter for screening for infections with a predominantly sexual mode of transmission (principal)
CPT/HCPCS: 36415; 81514; 81599; 86592; 86695; 86696; 86803; 87340; 87389; 87491; 87591; 87661

== ENCOUNTER 2021-12-02 15:25 | Outpatient (CLI) | payer OTHER | END 2021-12-02 15:26 | disposition home or self-care (01) | LOC: MAC.MOP 15:25 | PROVIDERS: ATTEND Physician Assistant | DX: R00.0 Tachycardia, unspecified (principal) | CPT/HCPCS: 93246 ==

== ENCOUNTER → 2022-01-04 | Outpatient (CLI) | payer OTHER | LOC: MAC.MOP 11:00 | PROVIDERS: ATTEND Physician Assistant | DX: I47.1 Supraventricular tachycardia (principal); I49.1 Atrial premature depolarization | CPT/HCPCS: 93248 ==

== ENCOUNTER 2022-07-19 08:00 | Outpatient (CLI) | payer OTHER | END 2022-07-19 08:01 | disposition home or self-care (01) | LOC: DI 08:00 | PROVIDERS: ATTEND Physician Assistant | DX: Q21.0 Ventricular septal defect (principal) | CPT/HCPCS: 93306 ==

== ENCOUNTER 2022-10-10 07:30 | Outpatient (CLI) | payer OTHER | END 2022-10-10 07:45 | disposition home or self-care (01) | LOC: LAB.N 07:30 | PROVIDERS: ATTEND Nurse Practitioner | DX: R10.9 Unspecified abdominal pain (principal) | CPT/HCPCS: 87086; 87181 ==

== ENCOUNTER 2023-06-01 07:26 | Outpatient (CLI) | payer OTHER ==
[2023-06-01 13:02] LABS: BASOPHILS % (AUTO) 0.5 %; EOSINOPHILS # (AUTO) 0.2 10^3/uL (0.0-0.7); EOSINOPHILS % (AUTO) 2.6 %; HCT - HEMATOCRIT 40.2 % (37.0-47.0); LYMPHOCYTES # (AUTO) 1.8 10^3/uL (1.5-3.5); LYMPHOCYTES % (AUTO) 30.8 %; MEAN CORPUSCULAR HEMOGLOBIN 30.2 pg (27.0-31.0); MEAN CORPUSCULAR HGB CONC 32.3 g/dL (32.0-36.0); MEAN CORPUSCULAR VOLUME 93.3 fL (81.0-99.0); MEAN PLATELET VOLUME 10.6 fL (7.9-10.8); MONOCYTES # (AUTO) 0.6 10^3/uL (0.0-1.0); MONOCYTES % (AUTO) 9.5 %; NEUTROPHILS # (AUTO) 3.3 10^3/uL (1.5-6.6); NEUTROPHILS % (AUTO) 56.4 %; PLT - PLATELET COUNT 212 10^3/uL (130-450); RED BLOOD COUNT 4.31 10^6/uL (4.20-5.40); RED CELL DISTRIBUTION WIDTH 12.5 % (12.0-15.0); WHITE BLOOD COUNT 5.8 x10^3/uL (4.8-10.8)
[2023-06-01 13:15] LABS: ALBUMIN 4.3 g/dL (3.2-5.5); ALBUMIN/GLOBULIN RATIO 2.5 (1.0-2.2); BILIRUBIN,TOTAL 0.5 mg/dL (0.2-1.0); CALCIUM 8.9 mg/dL (8.5-10.3); CREATININE 0.7 mg/dL (0.6-1.3); POTASSIUM 4.1 mmol/L (3.5-4.5)
[2023-06-01 13:30] LABS: THYROID STIMULATING HORMONE 1.21 uIU/mL (0.34-5.60)
== END 2023-06-01 07:27 | disposition home or self-care (01) ==
LOC: LAB.N 07:26
PROVIDERS: ATTEND Physician Assistant
DX: Z79.899 Other long term (current) drug therapy (principal); F90.9 Attention-deficit hyperactivity disorder, unspecified type; Z13.21 Encounter for screening for nutritional disorder
CPT/HCPCS: 36415; 80053; 82306; 84443; 85025